=== PATIENT | male | born 1980 | race African-American/Black ===

== ENCOUNTER 2021-06-17 09:51 | Emergency (ER) | payer MEDICAID ==
[~2021-06-17] VITALS: Ht 170.2 cm; Wt 68.0 kg
[2021-06-17] MEDS ORDERED: IBUPROFEN 800MG TABLET PO ONE (10:30)
[2021-06-17] MEDS ORDERED: IBUP-2029 MT (12:31)
[2021-06-17 12:53] VITALS: BP 109/67
== END 2021-06-17 12:57 | disposition home or self-care (01) ==
LOC: ER 09:51
DX: S83.8X1A Sprain of other specified parts of right knee, initial encounter (principal); V00.131A Fall from skateboard, initial encounter; Y93.51 Activity, roller skating (inline) and skateboarding; Y92.488 Other paved roadways as the place of occurrence of the external cause
CPT/HCPCS: 73562; 99283